=== PATIENT | male | born 1980 | race Caucasian/White ===

== ENCOUNTER 2017-04-19 20:28 | Emergency (ER) | payer OTHER ==
[2017-04-19 20:36] VITALS: BP 124/78; PULSE 92; TEMP 98.7; O2SAT 99
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
[2017-04-19 22:17] VITALS: RESP 20
--- NOTE | 2017-04-20 07:08 | RAD ---
Left shoulder three views History: Shoulder pain. Comparison: None available. Findings: Comminuted and mildly distracted fracture of the greater tuberosity of the left proximal humerus with some patchy osteopenia at the fracture site. Clinical correlation. Humeral head appears located in the glenohumeral joint space. Acromioclavicular joint space appears preserved. Impression: Fracture deformity of the greater tuberosity of the left proximal humerus.
== END 2017-04-19 22:15 | disposition home or self-care (01) ==
LOC: C.ER 20:28
DX: S42.252A Displaced fracture of greater tuberosity of left humerus, initial encounter for closed fracture (principal); V09.9XXA Pedestrian injured in unspecified transport accident, initial encounter